=== PATIENT | male | born 1985 | race Caucasian/White ===

== ENCOUNTER 2018-04-26 20:14 | Emergency (ER) | payer OTHER, MEDICAID, SELFPAY ==
[2018-04-26 20:41] VITALS: BP 138/88; PULSE 82; RESP 18; TEMP 36.9; O2SAT 98; BMI 21.2
--- NOTE | 2018-04-26 20:48 | DI.RAD.S_ITS ---
PROCEDURE: XR FOREARM RT 2V INDICATIONS: Fall from trampoline. Distal ateral FA pain/swelling TECHNIQUE: 2 views of the forearm were acquired. COMPARISON: None. FINDINGS: Bones: There is mild ulnar-sided bowing of the radial and ulnar shafts without a displaced fracture of the thigh. There is associated cortical thickening along the radial and ulnar shafts likely related to old fractures. Soft tissues: No suspicious soft tissue calcifications or masses. IMPRESSION: 1. Deformity of the radial and ulnar shafts with associated periosteal thickening likely represent sequelae of old fractures. No definite acute fracture. Dictated by: Esteban Beltran M.D. on 04/26/2018 at 21:42 Approved by: Esteban Beltran M.D. on 04/26/2018 at 21:43
--- NOTE | 2018-04-26 21:54 | ED_ITS ---
HPI - Extremity Injury (Upper) <DANAE Mesa - Last Filed: 04/26/18 22:40> General Chief Complaint: Extremity Injury, Upper Stated Complaint: HEARD A POP LEFT WRIST PAIN TOWARDS ELBOW Time Seen by Provider: 04/26/18 21:07 History of Present Illness HPI narrative: 32-year-old male here for complaint of pain into his left distal forearm status post falling off of a trampoline earlier today while he was playing with his children. He states that he fell backwards he went to brace his fall with his hand and felt pain into that area afterwards. Pain is mostly to the radial aspect of the distal left forearm. He denies any other injuries or concerns. Increased pain with palpation over the distal left for arm. MD complaint: injury to: left Related Data Home Medications Medication Instructions Recorded Confirmed gabapentin [Neurontin] 300 mg PO TID #0 09/20/16 Previous Rx's Medication Instructions Recorded tramadol 50 mg PO Q6HP PRN #10 tab 09/21/16 Allergies Allergy/AdvReac Type Severity Reaction Status Date / Time No Known Drug Allergies Allergy Verified 04/26/18 20:47 Review of Systems <DANAE Mesa - Last Filed: 04/26/18 22:40> Constitutional Denies chills, Denies fever(s), Denies lethargy and Denies weakness Eyes Denies change in vision, Denies eye discharge, Denies irritation and Denies loss of vision Cardiovascular Denies chest pain, Denies irregular heart rhythm, Denies lightheadedness, Denies palpitations, Denies dyspnea, Denies dyspnea on exertion and Denies orthopnea Respiratory Denies cough, Denies dyspnea, Denies dyspnea on exertion and Denies wheezing Gastrointestinal Gastrointestinal: Denies abdominal pain, Denies change in bowel habits, Denies diarrhea, Denies nausea and Denies vomiting Genitourinary Denies hematuria, Denies flank pain, Denies urinary incontinence and Denies urinary urgency Musculoskeletal Comments: Left forearm pain Integumentary/Breasts Denies pruritus, Denies erythema, Denies rash and Denies wounds Neurologic Denies confusion, Denies loss of vision and Denies weakness Psychiatric Denies anxiety, Denies confusion, Denies depression, Denies homicidal ideation and Denies suicidal ideation Endocrine Denies palpitations Allergic/Immunologic Denies wheezing Exam <DANAE Mesa - Last Filed: 04/26/18 22:40> Initial Vital Signs Initial Vital Signs: Vital Signs Temperature 98.5 F 04/26/18 20:41 Pulse Rate 82 04/26/18 20:41 Respiratory Rate 18 04/26/18 20:41 Blood Pressure 138/88 H 04/26/18 20:41 Pulse Oximetry 98 04/26/18 20:41 Const General: cooperative and well developed Nutritional Appearance: well nourished Orientation: alert, awake, oriented x3 and not confused HENMS Mouth: oral mucosae normal and moist mucous membranes Eyes Conjunctivae: conjunctivae normal Sclera: sclerae normal Pupils: PERRL EOM: EOM intact bilaterally Resp Effort & Inspection: normal respiratory effort, able to speak in complete sentences, no respiratory distress and no use of accessory muscles Auscultation: clear to auscultation bilaterally, no rales, no rhonchi and no wheezes Cardio Rate: regular rate Rhythm: regular rhythm Heart Sounds: no click, no gallops, no murmurs and no rubs Pulses: normal peripheral pulses Skin General: no rashes or lesions noted, No jaundice and No petechiae Neuro General: alert, oriented x3, gait normal and no focal motor deficits Speech: speech normal Extrem Other: Slight swelling to the distal left forearm radial aspect no ecchymosis. No open lesions. Distal sensation is intact. Distal range of motion is intact. Distal sensation is intact. Distal pulses less than 2 sec. <Angelika Davalos DO - Last Filed: 04/29/18 01:23> Initial Vital Signs Initial Vital Signs: Vital Signs Temperature 98.5 F 04/26/18 20:41 Pulse Rate 82 04/26/18 20:41 Respiratory Rate 18 04/26/18 20:41 Blood Pressure 138/88 H 04/26/18 20:41 Pulse Oximetry 98 04/26/18 20:41 Course <DANAE Mesa - Last Filed: 04/26/18 22:40> Orders Ordered: ED Orders 04/26/18 20:48 XR forearm LT 2V Stat Vital Signs - 8 hr 04/26/18 20:41 Temperature 98.5 F Pulse Rate 82 Respiratory Rate 18 Blood Pressure 138/88 H Pulse Oximetry 98 <DO Candida Butterfield Last Filed: 04/29/18 01:23> Orders Ordered: ED Orders 04/26/18 20:48 XR forearm LT 2V Stat Vital Signs - 8 hr 04/26/18 20:41 Temperature 98.5 F Pulse Rate 82 Respiratory Rate 18 Blood Pressure 138/88 H Pulse Oximetry 98 MDM - Extremity Injury (Upper) <DANAE Mesa - Last Filed: 04/26/18 22:40> Imaging Data Left forearm : Radiologist's impression: PROCEDURE: XR FOREARM RT 2V INDICATIONS: Fall from trampoline. Distal ateral FA pain/swelling TECHNIQUE: 2 views of the forearm were acquired. COMPARISON: None. FINDINGS: Bones: There is mild ulnar-sided bowing of the radial and ulnar shafts without a displaced fracture of the thigh. There is associated cortical thickening along the radial and ulnar shafts likely related to old fractures. Soft tissues: No suspicious soft tissue calcifications or masses. IMPRESSION: 1. Deformity of the radial and ulnar shafts with associated periosteal thickening likely represent sequelae of old fractures. No definite acute fracture. Dictated by: Esteban Beltran M.D. on 04/26/2018 at 21:42 Approved by: Esteban Beltran M.D. on 04/26/2018 at 21:[address] [facility] Narrative Medical decision making narrative: X-ray of the left forearm was obtained and was negative for any acute findings. Signs and symptoms presents as contusion/ sprain. Use placed in a thumb spica splint for comfort and support. Over-the- counter Tylenol as needed for any discomfort. Ice and elevation help with any swelling. Follow up with primary care provider next week. Recommend repeat films in 7-10 days if pain is still present to rule out occult fracture. For any worsening symptoms return to the emergency room. The patient informed to wear thumb spica splint and till pain-free or cleared by primary care provider. Discharge Plan Departure Patient Disposition: Home, Self-Care Clinical Impression: Contusion of forearm, left, Sprain and strain of wrist Discharge Date/Time: 04/26/18 22:07 Interventions: ED Discharge Assessment Last Done: 04/26/18 22:07 Instructions: DI for Contusion Activity Restrictions/Additional Instructions: X-ray was negative for any acute fractures. Signs and symptoms presents as sprain/contusion to left forearm/wrist. Follow up with her primary care provider next week repeat films in 7 days if still having pain. Wear splint as directed until pain-free or cleared by primary care provider. Use Tylenol as needed for any discomfort. Ice and elevation help with swelling. For any worsening symptoms return to the emergency room. Prescriptions: No Action gabapentin [Neurontin] 300 MG capsule 300 mg PO TID Qty: 0 RF: 0 tramadol 50 MG tablet 50 mg PO Q6HP PRNQty: 10 RF: 0 Referrals: Susana Toledo PA-C [Primary Care Provider] - Stand Alone Forms: Work/School Restrictions <Angelika Davalos DO - Last Filed: 04/29/18 01:23> Cosign ED Attending Jpature Attestation: I was immediately available in the department for consultation. Documentation has been reviewed. I agree with assessment and plan.
== END 2018-04-26 22:07 | disposition home or self-care (01) ==
PROVIDERS: Emergency Provider Nurse Practitioner Family; Family Provider Family Medicine; PCP Physician Assistant
DX: S50.12XA Contusion of left forearm, initial encounter (principal); S63.502A Unspecified sprain of left wrist, initial encounter; Y93.44 Activity, trampolining
CPT/HCPCS: 29280; 73090; 99282; 99283

== ENCOUNTER 2019-06-03 10:24 | Emergency (ER) | payer SELFPAY ==
[2019-06-03 10:59] VITALS: BP 146/104; PULSE 80; RESP 16; TEMP 37.1; O2SAT 99; BMI 20.9
[2019-06-03 11:03] VITALS: PULSE 80
--- NOTE | 2019-06-03 11:04 | PC.NURSE ---
swelling noted to left elbow, small bruise noted to left elbow. CMS intact. Pt denies obvious injury or trauma
--- NOTE | 2019-06-03 12:27 | DI.RAD.S_ITS ---
PROCEDURE: XR ELBOW LT MIN 3V INDICATIONS: R elbow swelling and px with movement. TECHNIQUE: 3 views of the elbow were acquired. COMPARISON: None. FINDINGS: Bones: No fractures or dislocations. No suspicious bony lesions. Soft tissues: No elbow joint effusion. No suspicious soft tissue calcifications. IMPRESSION: No trauma found. Dictated by: Harsh Rosas M.D. on 06/03/2019 at 13:23 Approved by: Harsh Rosas M.D. on 06/03/2019 at 13:23
--- NOTE | 2019-06-03 12:29 | ED.EXTPRO ---
HPI - Extremity Problem <DANAE Nguyen - Last Filed: 06/03/19 23:19> General Chief complaint: Extremity Problem,Nontraumatic Stated complaint: swollen lt elbow/pain in chest/arm hot Time Seen by Provider: 06/03/19 12:07 Source: patient Mode of arrival: ambulatory Limitations: no limitations History of Present Illness HPI Narrative: 33-year-old healthy male, presents emergency department today complaining of left elbow pain and swelling since this morning when he woke. He states that he was working yesterday and crawling around on his hands and elbows but does not remember any direct trauma to his left elbow. This morning when he woke he noticed a dull aching and burning pain that is a constant 8/10 which is worse when he moves his elbow or palpates the area. He denies any use of injectable drugs, recent illness, or lacerations or bug bites to the area. Patient denies fevers, chills, chest pain, shortness of breath, nausea, vomiting, stool changes, headaches, or confusion. He states he believes his last Tdap was administered last year. Related Data Previous Rx's Medication Instructions Recorded diclofenac sodium [Voltaren] 2 gram TOP QID #100 gram 06/03/19 Allergies Allergy/AdvReac Type Severity Reaction Status Date / Time No Known Drug Allergies Allergy Verified 04/26/18 20:47 Review of Systems <DANAE Nguyen - Last Filed: 06/03/19 23:19> Review of Systems Narrative: REVIEW OF SYSTEMS: GENERAL: Denies fever or chills. HENT: No head trauma. EYES: No double vision or vision loss. CARDIOVASCULAR: No chest pain or syncope. RESPIRATORY: No shortness of breath or cough. GASTROINTESTINAL: No nausea, vomiting, diarrhea, or constipation. MUSCULOSKELETAL: Complains of left elbow pain, see HPI. INTEGUMENTARY: No rash, lesions, or pruritus. NEURO: No numbness, tingling. PSYCH: No behavior or mood changes. PFSH <DANAE Nguyen - Last Filed: 06/03/19 23:19> Medical History Hydronephrosis, right (Acute) No significant past surgical history (Acute) Social History Smoking Status: Current every day smoker Social History Smoking Status: Current every day smoker Exam <DANAE Nguyen - Last Filed: 06/03/19 23:19> Initial Vital Signs Initial Vital Signs: Vital Signs Temperature 98.8 F 06/03/19 10:59 Pulse Rate 80 06/03/19 10:59 Respiratory Rate 16 06/03/19 10:59 Blood Pressure 146/104 H 06/03/19 10:59 Pulse Oximetry 99 06/03/19 10:59 PHYSICAL EXAMINATION: GENERAL: Well groomed, alert, and cooperative. Answers questions promptly and appropriately. Vital signs noted. HENT: Normocephalic, atraumatic. EYES: Symmetrical, sclera white, no periorbital swelling. RESPIRATORY: Normal respiratory rate, trachea midline, airway patent. No stridor, nasal flaring or accessory muscle use. Lungs are clear in all mendez. MUSCULOSKELETAL: Significant swelling and tenderness with palpation to the olecranon bursa, slight increased warmth without erythema to the area. No lesions or ecchymosis to the area. About 10 degree decrease in extension of left arm due to swelling and pain. Equal strength wrist, forearms, elbows, and deltoid bilaterally. Equal tone and mass bilaterally. EXTREMITIES: CMS intact. SKIN: Warm, dry, soft, appropriate color for ethnicity. No lesions, rashes, or wounds. NEURO: Alert and Oriented X 3. No sensory deficits. PSYCH: Appropriate affect and mood. <Zenaida Holliday MD - Last Filed: 06/06/19 01:58> Initial Vital Signs Initial Vital Signs: Vital Signs Temperature 98.8 F 06/03/19 10:59 Pulse Rate 80 06/03/19 10:59 Respiratory Rate 16 06/03/19 10:59 Blood Pressure 146/104 H 06/03/19 10:59 Pulse Oximetry 99 06/03/19 10:59 Course <DANAE Nguyen - Last Filed: 06/03/19 23:19> Course Course Narrative: Patient reported mild relief after administration of Toradol. Orders Ordered: Discontinued Medications Ketorolac Tromethamine (Toradol) 30 mg IM NOW ONE Stop: 06/03/19 12:28 Last Admin: 06/03/19 13:38 Dose: 30 mg Documented by: JORGE Consultations Consultation #1: Patient staffed Dr. Holliday. Vital Signs Vital signs: Vital Signs - 8 hr 06/03/19 10:59 06/03/19 11:03 Temperature 98.8 F Pulse Rate 80 Pulse Rate [Left Radial] 80 Respiratory Rate 16 Blood Pressure 146/104 H Pulse Oximetry 99 <Zenaida Holliday MD - Last Filed: 06/06/19 01:58> Orders Ordered: Discontinued Medications Ketorolac Tromethamine (Toradol) 30 mg IM NOW ONE Stop: 06/03/19 12:28 Last Admin: 06/03/19 13:38 Dose: 30 mg Documented by: JORGE Vital Signs Vital signs: Vital Signs - 8 hr 06/03/19 10:59 06/03/19 11:03 Temperature 98.8 F Pulse Rate 80 Pulse Rate [Left Radial] 80 Respiratory Rate 16 Blood Pressure 146/104 H Pulse Oximetry 99 MDM - Extremity (Nontraumatic) <DANAE Nguyen - Last Filed: 06/03/19 23:19> Imaging Data Left Elbow: Radiologist's impression: [id number] XRay Report Signed Patient: David Iniguez LMR#: [id number] : 1985Acct:[id number] Age/Sex: 33 / MDate of Service: 06/03/19 Loc: ED Accession Number: [id number] Procedure: XR elbow LT min 3V Ordering Provider: Ermelinda Wilson PROCEDURE: XR ELBOW LT MIN 3V INDICATIONS: R elbow swelling and px with movement. TECHNIQUE: 3 views of the elbow were acquired. COMPARISON: None. FINDINGS: Bones: No fractures or dislocations. No suspicious bony lesions. Soft tissues: No elbow joint effusion. No suspicious soft tissue calcifications. IMPRESSION: No trauma found. Dictated by: Harsh Rosas M.D. on 06/03/2019 at 13:23 Approved by: Harsh Rosas M.D. on 06/03/2019 at 13:[address] [facility] Narrative Medical decision making narrative: Differential includes olecranon bursitis which is most likely (localized swelling, reports of crawling around on his elbows yesterday, significant tenderness on palpation of the bursa, inflammation and swelling but significant erythema, joint mobility remains intact other than a few degrees of extension due to pain and swelling). Less likely sepsis or septic joint (a systemic symptoms such as fever, mostly full range of motion of elbow, lack of significant erythema surrounding area, swelling is very localized), less likely fracture due to negative x-ray. Strict return precautions given and follow-up instructions discussed. Discharge Plan Departure Patient Disposition: Home Clinical Impression: Bursitis, olecranon Qualifiers: Laterality: left Qualified Code(s): M70.22 - Olecranon bursitis, left elbow Discharge Date/Time: 06/03/19 14:30 Instructions: DI for Elbow Bursitis Activity Restrictions/Additional Instructions: Thank you for entrusting me with your care today. As discussed, your x-ray was negative for any fractures. I believe your symptoms are caused by bursitis, which is the swelling of a small fluid sac on your elbow joint. I recommend taking 400-600mg of ibuprofen every 6 hours for the next 4 days, use the Kobe wrap and ice to decrease swelling. I prescribed you a cream that you can apply to the area as well. Refrain from crawling around on your elbow. Please follow up with her primary care provider in the next week for re-evaluation. Return to the emergency department if you develop increased swelling and redness, , fevers, chills, malaise, uncontrollable vomiting, chest pain, shortness of breath. Prescriptions: New diclofenac sodium [Voltaren] 1 % gel 2 gram TOP QID Qty: 100 RF: 0
[2019-06-03] MEDS: KETOROLAC 60 MG/2 ML VIAL 30 MG IM (13:38)
[2019-06-03 14:45] VITALS: BP 128/75; PULSE 80; RESP 14; O2SAT 98
== END 2019-06-03 14:30 | disposition home or self-care (01) ==
PROVIDERS: Emergency Provider Nurse Practitioner
DX: M70.22 Olecranon bursitis, left elbow (principal)
CPT/HCPCS: 73080; 96372; 99282; 99283; J1885